=== PATIENT | male | born 1980 | race Hispanic/Latino ===

== ENCOUNTER 2018-12-24 14:40 | Emergency (ER) | payer SELFPAY ==
[2018-12-24] MEDS ORDERED: Ibuprofen 800 MG TAB ONE (15:06)
== END 2018-12-24 15:12 | disposition home or self-care (01) ==
LOC: MADERS 14:40
DX: H92.02 Otalgia, left ear (principal); H62.42 Otitis externa in other diseases classified elsewhere, left ear
CPT/HCPCS: 99282

== ENCOUNTER 2023-02-05 08:23 | Emergency (ER) | payer SELFPAY | END 2023-02-05 09:09 | disposition home or self-care (01) | LOC: MADERS 08:23 | DX: M25.562 Pain in left knee (principal) | CPT/HCPCS: 99283 ==

== ENCOUNTER 2023-03-04 12:04 | Emergency (ER) | payer SELFPAY | END 2023-03-04 12:54 | disposition home or self-care (01) | LOC: MADERS 12:04 | DX: H00.025 Hordeolum internum left lower eyelid (principal); R03.0 Elevated blood-pressure reading, without diagnosis of hypertension | CPT/HCPCS: 99283 ==

== ENCOUNTER 2023-06-15 09:45 | Emergency (ER) | payer SELFPAY | END 2023-06-15 11:50 | disposition home or self-care (01) | LOC: MADERS 09:45 | DX: K60.2 Anal fissure, unspecified (principal) | CPT/HCPCS: 99283 ==